=== PATIENT | male | born 1995 | race Caucasian/White ===

== ENCOUNTER 2019-02-16 15:27 | Emergency (ER) | payer OTHER ==
[2019-02-16 15:53] VITALS: BP 139/61
--- NOTE | 2019-02-16 16:45 | UC ---
Back Pain HPI - HPI Summary HPI Summary: Pt c/o of "tweaking" low back yesterday while playing basketball. Woke this morning with c/o low back stiffness, swelling, pain. - History of Current Complaint Chief Complaint: UCBackPain Stated Complaint: LOW BACK PAIN Time Seen by Provider: 02/16/19 16:37 Hx Obtained From: Patient Onset/Duration: Sudden Onset, Worse Since - onset Timing: Constant Severity Initially: Mild Severity Currently: Moderate Pain Intensity: 6 Character: Dull, Aching, Stiffness Aggravating Factor(s): Movement Alleviating Factor(s): Rest, Position Associated Signs And Symptoms: Positive: Swelling - Risk Factors AAA Risk Factors: Negative TAD Risk Factors: Negative Cauda Equina Risk Factors: Negative Epidural Abscess Risk Factors: Negative - Allergies/Home Medications Allergies/Adverse Reactions: Allergies Allergy/AdvReac Type Severity Reaction Status Date / Time No Known Allergies Allergy Verified 02/16/19 15:49 Home Medications: Home Medications Amphetamine MIXED SALT TAB* [Adderall TAB*] 40 mg DAILY 02/16/19 [History Confirmed 02/16/19] PMH/Surg Hx/FS Hx/Imm Hx Previously Healthy: Yes - Surgical History Surgical History: None - Family History Known Family History: Positive: Cardiac Disease - Social History Occupation: Student Lives: Dormitory/Roommates Alcohol Use: None Substance Use Type: None Smoking Status (MU): Never Smoked Tobacco Have You Smoked in the Last Year: No - Immunization History Vaccination Up to Date: Yes Review of Systems All Other Systems Reviewed And Are Negative: Yes Constitutional: Positive: Negative Skin: Positive: Negative Eyes: Positive: Negative ENT: Positive: Negative Respiratory: Positive: Negative Cardiovascular: Positive: Negative Gastrointestinal: Positive: Negative Genitourinary: Positive: Negative Motor: Positive: Decreased ROM - pain with movement low back Neurovascular: Positive: Negative Musculoskeletal: Positive: Arthralgia, Decreased ROM - pain with rom low back, Myalgia Neurological: Positive: Negative Psychological: Positive: Negative Is Patient Immunocompromised?: No Physical Exam Triage Information Reviewed: Yes Appearance: Well-Appearing Vital Signs: Initial Vital Signs Temp 98.3 F 02/16/19 15:49 Pulse 81 02/16/19 15:49 Resp 16 02/16/19 15:49 BP 139/61 02/16/19 15:49 Pulse Ox 99 04/28/19 15:49 Vital Signs Reviewed: Yes Eye Exam: Normal ENT Exam: Normal ENT: Positive: Hearing grossly normal Dental Exam: Normal Neck exam: Normal Respiratory Exam: Normal Respiratory: Positive: Normal breath sounds Cardiovascular Exam: Normal Musculoskeletal Exam: Normal Musculoskeletal: Positive: Strength Intact, ROM Intact, Edema @ - low back Neurological Exam: Normal Neurological: Positive: Alert, Muscle Tone Normal Psychological Exam: Normal Skin Exam: Normal Back Pain Course/Dx - Differential Dx/Diagnosis Differential Diagnosis/HQI/PQRI: Herniated Disc, Strain, Sprain Provider Diagnosis: Low back strain Discharge - Sign-Out/Discharge Documenting (check all that apply): Patient Departure All imaging exams completed and their final reports reviewed: No Studies - Discharge Plan Condition: Stable Disposition: HOME Prescriptions: Cyclobenzaprine TAB* [Flexeril 10 MG TAB*] 10 mg PO Q8H PRN #12 tab PRN Reason: Pain Patient Education Materials: Low Back Strain (ED), Lower Back Exercises (ED) Referrals: [facility] [facility] [Outside] No Primary Care Phys,NOPCP [Primary Care Provider] - - Billing Disposition and Condition Condition: STABLE Disposition: Home
[2019-02-16] MEDS ORDERED: Cyclobenzaprine TAB* 10 MG PO ONE (16:51)
== END 2019-02-16 16:57 | disposition home or self-care (01) ==
LOC: UCCORT 15:27
DX: M54.5 Low back pain (principal)
CPT/HCPCS: 99202; A9270-GY; G0463

== ENCOUNTER 2019-12-15 13:43 | Emergency (ER) | payer OTHER ==
[2019-12-15 14:44] VITALS: BP 147/59
--- NOTE | 2019-12-15 15:02 | UC ---
Back Pain HPI - HPI Summary HPI Summary: Patient's a 24-year-old male presents to urgent care reporting left low back pain that started approximately 2 hours ago when he was lifting weights. Patient states he was standing, performing bicep curls, when he felt a twinge in his left low back. Patient states is gotten progessively tight since. No particular leg weakness. No radiation. No change of bowel or bladder. Patient without a history of similar. No analgesic taken SOUR BLEACHING PLEATER. No other treatments trialed. Patient states pain is better when he sits still and it is worse with movement but does not go away. Patient without any other complaints. Patient's medications as entered in the EMR reviewed this visit. Patient goes to [employer], but is not on a sports team. 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 - History of Current Complaint Chief Complaint: UCBackPain Stated Complaint: LOWER BACK PAIN Time Seen by Provider: 12/15/19 14:55 Hx Obtained From: Patient Onset/Duration: Sudden Onset Timing: Lasting Hours Severity Initially: Moderate Severity Currently: Moderate Pain Intensity: 4 Pain Scale Used: 0-10 Numeric - Allergies/Home Medications Allergies/Adverse Reactions: Allergies Allergy/AdvReac Type Severity Reaction Status Date / Time No Known Allergies Allergy Verified 12/15/19 14:40 Home Medications: Home Medications Amphetamine MIXED SALT TAB* [Adderall TAB*] 40 mg PO DAILY 02/16/19 [History Confirmed 12/15/19] PMH/Surg Hx/FS Hx/Imm Hx Previously Healthy: Yes Psychological History: Other - ADHD - Surgical History Surgical History: None - Family History Known Family History: Positive: Cardiac Disease, Non-Contributory - Social History Occupation: Student Lives: Dormitory/Roommates Alcohol Use: Occasionally Substance Use Type: None Smoking Status (MU): Never Smoked Tobacco Have You Smoked in the Last Year: No - Immunization History Vaccination Up to Date: Yes Review of Systems All Other Systems Reviewed And Are Negative: No Constitutional: Positive: Negative Skin: Positive: Negative Respiratory: Positive: Negative Cardiovascular: Positive: Negative Gastrointestinal: Positive: Negative Genitourinary: Positive: Negative Motor: Positive: Other - left low back pain Neurological/Mental Status: Positive: Negative. Negative: Weakness, Numbness Physical Exam - Summary Physical Exam Summary: Vital Signs Reviewed: Yes A+Ox3, no distress Eyes: Conjunctiva Clear, ENT: Hearing grossly normal mmoist, neck: Positive: Supple Respiratory: Positive: No respiratory distress, No accessory muscle use + CTA throughout no w/r - reports discomfort left low back with deep inspiration Cardiovascular: RRR nl s1, s2 no m/r CBT <2 sec abd soft + BS nt/nd no guarding, no distension Musculoskeletal Exam: Full AROm upper ex with mild discomfort left low back no pain spinous process c/t/l/s + SLE b/l + flex.et knee with mild pain in left low abce +flex/ext ankld + TTP and focal area of muscle spasm left paraspinal mid lumbar area Neurological: Positive: Alert, + sensation throughout + gross sensation throughotu LE 2+patella b/l - no clonus + great toe ext Psychological: Positive: Normal Response To examiner Skin: Positive: no rash, no ecchymosis Triage Information Reviewed: Yes Vital Signs: Initial Vital Signs Temp 98.2 F 12/15/19 14:40 Pulse 72 12/15/19 14:40 Resp 15 12/15/19 14:40 BP 147/59 12/15/19 14:40 Pulse Ox 100 12/15/19 14:40 Back Pain Course/Dx - Course Course Of Treatment: Patient presents to urgent care with 2 hours of left low back paraspinal pain worse last 2 hours since lifting weights. Patient states he was doing bicycle sustaining what happened. Patient has not taken any analgesia. Patient states pain is worse with movement. On exam vital signs are stable. Patient with focal paraspinal left lower lumbar muscle pain. Patient will good CSM distally. Recommend patient applied heat and stretch the ice. Motrin Tylenol for pain. Strict return cautions discussed. Patient given a note for class today. Patient is to follow-up with student health or sports medicine. Patient 's states comfort and agreement with plan. BP elevated - likely related to presentation - recommend f/u - Differential Dx/Diagnosis Provider Diagnosis: Lumbar back pain Discharge ED - Sign-Out/Discharge Documenting (check all that apply): Patient Departure All imaging exams completed and their final reports reviewed: No Studies - Discharge Plan Condition: Stable Disposition: HOME Patient Education Materials: Low Back Strain (ED) Forms: *School Release Referrals: [facility] [Provider Group] [facility] [Outside] No Primary Care Phys,NOPCP [Primary Care Provider] - Additional Instructions: - Okay to alternate ibuprofen (Advil, Motrin) 600mg and Tylenol (acetaminophen) 1000mg every 3hours as needed for pain. Take with food. Do NOT take for more than 4-5 days. -Apply moist heat to your back for 20 minutes at a time, 4-5 times a day. Once your muscles are warm, slow gentle stretching exercises are important. After stretching, okay to apply ice (wrapped in a towel) for 15 minutes at a time - Contact the [facility] or the sports medicine office to schedule a follow-up appointment - okay to ask for the [place] office - if you have uncontrolled pain, leg weakness, difficulty controlling your urine or any other concerns it is recommended you go to the emergency department for further evaluation and treatment - Billing Disposition and Condition Condition: STABLE Disposition: Home
[2019-12-15] MEDS ORDERED: Ibuprofen TAB* 600 MG PO ONE (15:12)
== END 2019-12-15 15:23 | disposition home or self-care (01) ==
LOC: UCCORT 13:43
DX: M54.5 Low back pain (principal); F90.9 Attention-deficit hyperactivity disorder, unspecified type; Z79.899 Other long term (current) drug therapy
CPT/HCPCS: 99211; A9270-GY; G0463